=== PATIENT | male | born 1990 | race Caucasian/White ===

== ENCOUNTER 2021-08-23 09:48 | Emergency (ER) | payer SELFPAY ==
[~2021-08-23] VITALS: Ht 170.2 cm; Wt 84.1 kg
[2021-08-23 09:54] VITALS: BP 111/71; TEMP 99.4
[2021-08-23 10:40] VITALS: PULSE 70
== END 2021-08-23 10:41 | disposition home or self-care (01) ==
LOC: COL.ER 09:48
DX: L30.9 Dermatitis, unspecified (principal); L55.1 Sunburn of second degree; F17.210 Nicotine dependence, cigarettes, uncomplicated; Z28.310 Unvaccinated for COVID-19
CPT/HCPCS: J1100